=== PATIENT | male | born 1960 | race Caucasian/White ===

== ENCOUNTER 2016-09-28 12:10 | Emergency (ER) | payer OTHER ==
[~2016-09-28] VITALS: Ht 177.8 cm; Wt 86.2 kg
[2016-09-28] MEDS ORDERED: NORCO 5-325 TA1 EACH PO (14:06)
[2016-09-28 14:38] VITALS: BP 128/80
== END 2016-09-28 14:39 | disposition home or self-care (01) ==
LOC: ER 12:10
DX: S83.8X1A Sprain of other specified parts of right knee, initial encounter (principal); E11.9 Type 2 diabetes mellitus without complications; W11.XXXA Fall on and from ladder, initial encounter; Y93.89 Activity, other specified; Y92.89 Other specified places as the place of occurrence of the external cause; Y99.8 Other external cause status